=== PATIENT | female | born 1960 | race Hispanic/Latino ===

== ENCOUNTER 2018-03-24 08:27 | Observation (INO) | payer OTHER ==
[2018-03-17 10:47] LABS: BASOPHILS % 0.3 % (0.0-1.0); EOSINOPHILS # (AUTO) 0.1 (0.0-0.4); EOSINOPHILS % 1.4 % (0.0-6.0); HEMATOCRIT 43.9 % (34.2-44.1); HEMOGLOBIN 14.4 g/dL (12.0-16.0); LYMPHOCYTES # (AUTO) 2.2 (1.0-3.2); LYMPHOCYTES % 34.5 % (18.0-39.1); MEAN CORPUSCULAR HEMOGLOBIN 30.8 pg (28-32); MEAN CORPUSCULAR HGB CONC 32.8 g/dL (31-35); MEAN CORPUSCULAR VOLUME 93.8 fL (81-99); MONOCYTES # (AUTO) 0.7 (0.2-0.8); MONOCYTES % 10.4 % (4.4-11.3); NEUTROPHILS # (AUTO) 3.3 (2.1-6.9); NEUTROPHILS % 53.2 % (38.7-80.0); PLATELET COUNT 342 x10e3/uL (140-360); RED BLOOD COUNT 4.68 x10e6/uL (3.6-5.1); RED CELL DISTRIBUTION WIDTH 13.8 % (11.7-14.4)
[~2018-03-24] VITALS: Ht 154.9 cm; Wt 75.0 kg
[2018-03-24] MEDS ORDERED: LOVASTATIN40 MG (09:21)
[2018-03-24] MEDS ORDERED: ESTROGENS CONJUGATED VAGINAL CR 45 GM TUBE PV ONE (09:42)
[2018-03-24] MEDS ORDERED: BUPIVACAINE 0.25%/EPI 30ML SDV INJ ONE (09:42)
[2018-03-24] MEDS ORDERED: HYDROCODONE/APAP 10MG-325MG TAB PO PRN (09:45)
[2018-03-24] MEDS ORDERED: ONDANSETRON HCL INJ 2 MG/ML VIAL IV PRN (09:45)
[2018-03-24] MEDS ORDERED: KETOROLAC TROMETHAMINE 30 MG/ML VIAL IM PRN (09:45)
[2018-03-24] MEDS ORDERED: BISACODYL 5 MG TAB EC PO PRN (09:45)
[2018-03-24] MEDS ORDERED: ZOLPIDEM TARTRATE 5 MG TAB PO PRN (09:45)
[2018-03-24] MEDS ORDERED: DIPHENHYDRAMINE HCL 25 MG CAP PO PRN (09:45)
[2018-03-24] MEDS ORDERED: FENTANYL CITRATE/PF 100MCG/2 ML INJ ONE ×2 (11:23→19:31)
[2018-03-24 13:35] VITALS: BP 112/66
--- NOTE | 2018-03-24 13:42 | Operative Report ---
DATE OF PROCEDURE: PREOPERATIVE DIAGNOSIS: Pelvic organ prolapse. POSTOPERATIVE DIAGNOSIS: Pelvic organ prolapse. PROCEDURES 1. Anterior and posterior repair. 2. Sacrospinous colpopexy. 3. Enterocele repair COMPLICATIONS: None. ESTIMATED BLOOD LOSS: 50 mL. DESCRIPTION OF PROCEDURE: Patient was taken to the OR, general anesthesia was placed. She was prepped and draped in normal sterile fashion and placed in dorsal lithotomy position. After examination under anesthesia, a weighted speculum was placed inside the vagina. Vaginal vault was held with 2 Allis clamps about 3 cm apart and a vaginal skin incision was made with the scalpel between the 2 Allis clamps. The vagina was dissected off the bladder line using Metzenbaum scissors using the push-spread technique and opened in the midline anteriorly using the same instruments. The flaps of the vagina were dissected off the underlying bladder using both sharp and blunt dissection. Pelvic floor was penetrated using the index finger and the sacrospinous ligament was palpated on each side of the pelvis. Using the Capio needle selby, the Vicryl suture was placed on the sacrospinous ligament, the other end was hooked up to the vaginal vault. A plain catgut 3-0 suture was placed on the bladder to reduce the size of the bladder. The pubocervical ligaments on each side were brought together using Vicryl 0 interrupted sutures. Following this, the sutures were tied and the pubocervical ligaments were approximated. The excess vaginal skin was trimmed off. Omentum was noted to be piercing into the vaginal vault and at that area, the omentum pushed backwards, pushed cephalad, and pubocervical ligaments were approximated. Excess vaginal skin was trimmed off using curved Desai scissors and the vagina was closed with interlocking sutures of Vicryl 0. Following this, the sacrospinous sutures were tied and the vaginal vault was elevated. A posterior repair was performed using 2 Allis clamps were applied at about 1 cm from the fourchette and posterior vaginal vault was injected with Marcaine with epinephrine 0.25%, 20 mL and the vagina was dissected off the perineum and rectum using Metzenbaum scissors and opened and the posterior wall of the vagina was opened with Metzenbaum scissors in the midline and 2 flaps were dissected off the underlying tissues using both sharp and blunt dissection. Using the Vicryl 0 sutures, the levator ani were approximated. Excess vaginal skin was trimmed off using curved Desai scissors and the vagina was closed with interlocking stitches of Vicryl 0. Suction and irrigation of the vaginal cavity using saline and vaginal pack was inserted inside the vaginal canal. Patient tolerated the procedure well. Lap, instrument, and needle count was correct x2 at the end of the procedure. A Ardon catheter was placed and revealed clear urine as well. Rectal exam was performed and showed intact rectum. Job#: [id number]
[2018-03-24 14:00] VITALS: BP 112/66
[2018-03-24] MEDS: LACTATED RINGER'S 1,000 ML IV SCH ×2 (17:34→20:17)
[2018-03-24] MEDS ORDERED: KETOROLAC TROMETHAMINE 30 MG/ML VIAL ONE (18:01)
[2018-03-24] MEDS ORDERED: CEFAZOLIN SOD 1 GM VIAL ONE (18:01)
[2018-03-24] MEDS ORDERED: LIDOCAINE HCL 2% LOCAL INJ 5 ML SDV VIAL INJ ONE (18:01)
[2018-03-24] MEDS ORDERED: SEVOFLURANE INHAL SOLN 250 ML PEN BTL ONE (18:01)
[2018-03-24] MEDS ORDERED: ACETAMINOPHEN 1000 MG/100 ML IV ONE (18:01)
[2018-03-24] MEDS ORDERED: DEXAMETHASONE SOD PHOS INJ 4 MG/ML VIAL ONE (18:01)
[2018-03-24] MEDS ORDERED: PROPOFOL IV EMULSION 10 MG/ML 20 ML VIAL ONE (18:01)
[2018-03-24] MEDS ORDERED: ONDANSETRON HCL INJ 2 MG/ML VIAL ONE (18:01)
[2018-03-24] MEDS: MEPERIDINE HCL INJ 25 MG/ML VIAL IV PRN (19:25)
[2018-03-24] MEDS ORDERED: MIDAZOLAM HCL 2 MG/2 ML VIAL ONE (19:31)
[2018-03-24 20:00] VITALS: BP 106/65
[2018-03-24] MEDS ORDERED: SIMVASTATIN 20 MG TAB PO SCH (21:00)
[2018-03-25] VITALS: BP 114/69
[2018-03-25] MEDS: LACTATED RINGER'S 1,000 ML IV SCH ×2 (01:34→05:48)
[2018-03-25 04:00] VITALS: BP 129/72
[2018-03-25] MEDS: MEPERIDINE HCL INJ 25 MG/ML VIAL IV PRN (04:40)
[2018-03-25 08:32] VITALS: BP 104/58
[2018-03-25] MEDS ORDERED: TYLENOL WITH C1 EACH PO (10:15)
[2018-03-25 11:50] VITALS: BP 115/70
== END 2018-03-25 13:29 | disposition home or self-care (01) ==
LOC: OR 08:27 → PACU V 09:36 → IMCU 12:55
PROVIDERS: ADMIT Obstetrics & Gynecology; ATTEND Obstetrics & Gynecology
DX: N81.89 Other female genital prolapse (principal); N81.10 Cystocele, unspecified; N81.5 Vaginal enterocele
CPT/HCPCS: 36415; 57265; 57282; 84702; 85025; 93005; G0378 ×2; J0690; J1100; J1885; J2001; J2175 ×2; J2250; J2405; J7120 ×2